=== PATIENT | male | born 2005 | race Caucasian/White ===

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

== ENCOUNTER 2025-09-11 20:05 | Emergency (ER) | payer OTHER, SELFPAY ==
[2025-09-11 20:08] VITALS: BP 140/64; PULSE 60; RESP 16; TEMP 36.7; O2SAT 99; BMI 22.8
--- OUTSIDE RECORDS SUMMARY | 2025-09-11 20:23 | XMS_ITS | Encounter Summary ---
Author Organization [facility] Address [address] [place] [phone] Phone Care Team Providers Care Fig Washer Name Role Phone Jasmyn Brown PILER Primary Care Provider Unavail able Encounter Details Date Type Department Care Team (Late st Contact Info) Description 08/05/2013 Documentation [facility] [place] [address] [place] [address] Family Medicine, Physician [address] [place], [place] [id number] Social History Tobacco Use Types Packs/Day Years Used Date Smoking Tobacco: Never Assessed Sex and Gender Information Value Date Recorded Sex Assigned at Not on file Legal Sex Male 4:36 PM EDT Gender Identity Not on file Sexual Orientation Not on file documented as of this encounter Plan of Treatment Not on file documented as of this encounter Visit Diagnoses Not on filedocumented in this encounter Care Teams Fig Washer Relationship Specialty Start Date End Date Jasmyn Brown NP PCP - General 05/31/17 documented as of this encounter
--- OUTSIDE RECORDS SUMMARY | 2025-09-11 20:23 | XMS_ITS | Encounter Summary ---
Author Organization [facility] Address [address] [place] [phone] Phone Care Team Providers Care Subcontracts Manager Name Role Phone Jasmyn Brown GRAINING PRESS OPERATOR Primary Care Provider Unavail able Encounter Details Date Type Department Care Team (Late st Contact Info) Description 05/28/2011 Documentation [facility] [place] [address] [place] [address] Family Medicine, Physician [address] [place], [place] [phone] Social History Tobacco Use Types Packs/Day Years [...] on filedocumented in this encounter Care Teams Subcontracts Manager Relationship Specialty Start Date End Date Jasmyn Brown NP PCP - General 05/31/17 documented as of this encounter
--- OUTSIDE RECORDS SUMMARY | 2025-09-11 20:23 | XMS_ITS | Encounter Summary ---
Author Organization [facility] Address [address] [place] [phone] Phone Care Team Providers Care Handicapper [employer] Name Role Phone Jasmyn Brown CORPORATE WEBMASTER Primary Care Provider Unavail able Encounter Details Date Type Department Care Team (Late st Contact Info) Description 06/06/2017 Conversion Encounter [facility] - [address] [id number] Social History Tobacco Use Types Packs/Day Years [...] on filedocumented in this encounter Care Teams Handicapper [employer] Relationship Specialty Start Date End Date Jasmyn Brown NP PCP - General 05/31/17 documented as of this encounter
--- OUTSIDE RECORDS SUMMARY | 2025-09-11 20:23 | XMS_ITS | Encounter Summary ---
Author Organization [facility] Address [address] [place] [phone] Phone Care Team Providers Care Health Information Management Director Name Role Phone Jasmyn Brown TRAINING ENGINEER Primary Care Provider Unavail able Encounter Details Date Type Department Care Team (Late st Contact Info) Description 05/28/2011 Documentation [facility] [place] Family Medicine [address] [place] [address] Family Medicine, Physician [address] [place], [place] [phone] Social History Tobacco Use Types Packs/Day Years [...] on filedocumented in this encounter Care Teams Health Information Management Director Relationship Specialty Start Date End Date Jasmyn Brown NP PCP - General 05/31/17 documented as of this encounter
--- OUTSIDE RECORDS SUMMARY | 2025-09-11 20:23 | XMS_ITS | Encounter Summary ---
Author Organization [facility] Address [address] [place] [phone] Phone Care Team Providers Care Medical Underwriter Name Role Phone Jasmyn Brown COMMERCIAL COLLECTIONS SPECIALIST Primary Care Provider Unavail able Encounter Details Date Type Department Care Team (Late st Contact Info) Description 03/18/[address] [facility] [place] Family Medicine [address] [place] [address] Family Medicine, Physician [address] [place], [place] [id number] Social History Tobacco Use Types Packs/Day Years [...] on filedocumented in this encounter Care Teams Medical Underwriter Relationship Specialty Start Date End Date Jasmyn Brown NP PCP - General 05/31/17 documented as of this encounter
--- OUTSIDE RECORDS SUMMARY | 2025-09-11 20:23 | XMS_ITS | Encounter Summary ---
Author Organization [facility] Address [address] [place] [phone] Phone Care Team Providers Care Rn Documentation Name Role Phone Jasmyn Brown COMIC ILLUSTRATOR Primary Care Provider Unavail able Encounter Details Date Type Department Care Team (Late st Contact Info) Description 09/21/2016 Documentation [facility] [place] Family Medicine [address] [place] [address] Family Medicine, Physician [address] [place] [address] Social History Tobacco Use Types Packs/Day Years [...] on filedocumented in this encounter Care Teams Rn Documentation Relationship Specialty Start Date End Date Jasmyn Brown NP PCP - General 05/31/17 documented as of this encounter
--- OUTSIDE RECORDS SUMMARY | 2025-09-11 20:23 | XMS_ITS | Clinical Summary ---
Author Organization [facility] Address [address] [place] [phone] Phone Care Team Providers Care Exposure Machine Operator Name Role Phone Jasmyn Brown NP Primary Care Provider Unavail able Immunizations Immunization Administration Dates Next Due DTaP 05/25/2011 DTaP / Hep B / IPV 04/24/2006,02/15/2006, 006 DTaP 5 02/28/2007 H1N1 11/11/2009 Hep A, ped/adol 05/25/2011 Hep B, ped/adol 2005 Hib (HbOC) 02/28/2007 Hib (PRP-T) 04/24/2006,02/15/2006,2005 IPV 05/25/2011 Influenza, injectable, trivalent 11/11/2009,08/22 MMR 11/11/2009 MMRV 10/25/2006 Pneumococcal Conjugate 02/28/2007,04/24/2006,,2005 Varicella 11/11/2009 Family History Relation Name Status Comments Brother 1 Alive Brother: Alive and well, Alive and well Brother 2 Alive Brother: Alive and well, Alive and well Father Alive Father: Alive a nd well Mother Alive Mother: Hyperte nsion Social History Tobacco Use Types Packs/Day Years Used Date Smoking Tobacco: Never Assessed Sex and Gender Information Value Date Recorded Sex Assigned at Not on file Legal Sex Male 4:36 PM EDT Gender Identity Not on file Sexual Orientation Not on file Last Filed Vital Signs Vital Sign Reading Time Taken Comments Blood Pressure 102/60 05/25/2011 12:00 AM EDT Pulse - - Temperature - - Respiratory Rate - - Oxygen Saturation - - Inhaled Oxygen Concentration - - Weight 19.5 kg (43 lb) 05/25/2011 12:00 AM EDT Height 114.3 cm (3' 9 ) 05/25/2011 12:00 AM EDT Ibrosz-qtq-Jbqied Percentile 35.91% 05/25/2011 1 2:00 AM EDT Growth Chart: [facility] (Boys, 2-2 0 Years) Body Mass Index 14.93 05/25/2011 12:00 AM EDT Body Mass Index Percentile 34.96% 05/25/2011 12: 00 AM EDT Growth Chart: [facility] (Boys, 2-2 0 Years) Plan of Treatment Health Maintenance Due Date Last Done Comments Hepatitis A Vaccines (2 of 2 - 2-dose series) 11/25/2011 05/25/2011 DTaP,Tdap,and Td Vaccines (6 - Tdap) 2016 05/25/2011, 02/28/2007, 04/24/2006, Additional history exists HPV Vaccines (1 - Male 3-dose series) 2020 Men B Vaccine (1 of 2 - Standard) 2021 Influenza Vaccines (#1) 2025 11/11/2009, 09/17 COVID-19 Vaccine (1 - season) 2025 Hepatitis B Vaccines Completed 04/24/2006, 02/15/2006, 2005, Additional history exists HIB Vaccines Completed 02/28/2007, 02/2006, 02/15/2006, Additional history exists Pneumococcal Vaccine Completed 02/28/2007, 04/24/2006, 02/15/2006, Additional history exists MMR Vaccines Completed 11/11/2009, 10/25/2006 Varicella Vaccines Completed 11/11/2009, 10/25/2006 IPV Vaccines Completed 05/25/2011, 02/2006, 02/15/2006, Additional history exists Meningococcal Vaccine Aged Out No ivan elton eligible based on patient's age to complete this topic Care Teams Exposure Machine Operator Relationship Specialty Start Date End Date Jasmyn Brown NP PCP - General 05/31/17
--- NOTE | 2025-09-11 20:35 | ED.GENADULT ---
HPI - General Adult General Chief complaint: Ear Problems Stated complaint: General Medical Time Seen by Provider: 09/11/25 20:11 Source: patient, family (mother), RN notes reviewed and old records reviewed Mode of arrival: ambulatory Limitations: no limitations History of Present Illness ED Provider: Yefri HPI narrative: 19-year-old male presents for evaluation of decreased hearing in both ears. He reports for about 3 weeks he has been unable to hear well from both ears pain He has no pain Has a history of ear infections he would not stick anything in his ear. He had previous has been told not to put anything in his ears to clean out his ears in his own Related Data Home Medications ?Medication ?Instructions ?Recorded ?Confirmed hydroxyzine HCl 10 mg tablet 10 mg PO TID PRN 10/04/23 11/01/23 Previous Rx's ?Medication ?Instructions ?Recorded amoxicillin 875 mg-potassium 1 tab PO Q12H #14 tabs 09/05/24 clavulanate 125 mg tablet Allergies Allergy/AdvReac Type Severity Reaction Status Date / Time No Known Allergies Allergy Verified 09/11/25 20:10 Review of Systems Constitutional: Constitutional: Denies chills and Denies fever(s) ENT: Denies ear discharge, Denies otalgia and Reports hearing loss PMF Past Medical History Medical History Generalized anxiety disorder with panic attacks Social History Social History Household Members: Family Household Members Other:: Lives in duplex: mom and dad one side, he and brother -25 in the other. Advance Directives: No Advance Directives Information Provided: No Physical Exam ED Vital Signs: Vital Signs - 24 hr 09/11/25 20:08 09/11/25 20:36 Temperature 98.0 F 98.0 F Pulse Rate 60 60 Respiratory Rate 16 16 Blood Pressure 140/64 H 140/64 H Pulse Oximetry 99 99 Oxygen Delivery Method Room Air Room Air BMI result Body Mass Index 22.8 HENMT Other: on initial examination that has bilateral cerumen impaction unable to visualize bilateral tympanic membranes. No pre or postauricular edema, no mastoid tenderness. Ears: external ears normal Medical Decision Making Medical Decision Making MDM Narrative: The patient had evidence of bilateral cerumen impactions. There was no evidence of infection, he had no pain, no erythema, no drainage from the ear. I used a solution of half more water and half hydrogen peroxide. I irrigated 100 cc in each ear. There was a significant amount of brown cerumen that was removed. I used a curette to remove additional cerumen. On repeat examination, the right tympanic membrane was visualized and pearly white. There appeared to be some cerumen buildup adjacent to the left tympanic membrane. The visualized portions of the tympanic membrane was not erythematous. we will discharge the patient has instructions to use Debrox to continue soften in the ear wax Differential Diagnosis Differential Diagnoses: The differential diagnosis associated with the presentation includes cerumen impactions otitis media Otitis externa Mastoiditis foreign body in ear Discharge Plan Discharge Clinical Impression: Bilateral impacted cerumen Patient Disposition: Home, Self-Care Instructions: Carbamide Peroxide (Into the ear) Additional Instructions: you had bilateral cerumen impaction. This is essentially you wax buildup in both ears. I recommend using Debrox drops as prescribed. Follow up with your primary doctor, return for new or worsening symptoms pain There was no infection at this time Prescriptions: No Action amoxicillin-pot clavulanate 875-125 mg tablet 1 tab PO Q12H Qty: 14 0RF hydroxyzine HCl 10 mg tablet 10 mg PO TID PRN Interventions: ED Discharge Assessment Last Done: 09/11/25 20:36 Print Language: [place] Islander
[2025-09-11 20:36] VITALS: BP 140/64; PULSE 60; RESP 16; TEMP 36.7; O2SAT 99
== END 2025-09-11 20:41 | disposition home or self-care (01) ==
PROVIDERS: Emergency Provider Emergency Medicine
DX: H61.23 Impacted cerumen, bilateral (principal); Z79.899 Other long term (current) drug therapy
CPT/HCPCS: 69209; 99282; 99284